=== PATIENT | male | born 1955 | race Caucasian/White ===

== ENCOUNTER → 2019-02-24 | Outpatient (CLI) | payer MEDICARE ==
[2019-02-24 07:10] LABS: Basophils # (A) 0.1 k/uL (0-0.2); Basophils % (A) 1 %; Eosinophils # (A) 0.1 k/uL (0-0.7); Eosinophils % (A) 2 %; HCT 44.9 % (39.0-53.0); HGB 14.6 gm/dL (13.0-17.5); Lymphocytes # (A) 2.6 k/uL (1.0-4.8); Lymphocytes % (A) 36 %; MCH 27.9 pg (25.0-35.0); MCHC 32.5 g/dL (31.0-37.0); MCV 85.8 fL (80.0-100.0); Mean Platelet Volume 7.6; Monocytes # (A) 0.4 k/uL (0-1.0); Monocytes % (A) 6 %; Neutrophils # (A) 3.8 k/uL (1.3-7.7); Neutrophils % (A) 53 %; Platelet Count 193 k/uL (150-450); RBC 5.23 m/uL (4.30-5.90); RDW 13.7 % (11.5-15.5); WBC 7.3 k/uL (3.8-10.6)
[2019-02-24 11:47] LABS: African American GFR (CKD) 74.7 (60.0-200.0); Albumin 4.4 g/dL (3.80-4.90); Albumin/Globulin Ratio 1.83 (1.60-3.17); Anion Gap 7.2 mmol/L (4.00-12.00); BUN/Creat Ratio 15.83 Ratio (12.00-20.00); Calcium 9.8 mg/dL (8.7-10.3); Carbon Dioxide 28.8 mmol/L (21.6-31.8); Globulin 2.4 g/dL (1.6-3.3); LDL Cholesterol,Calculated 63.2 mg/dL (0.0-131.0); Magnesium 1.6 mg/dL (1.5-2.4); Potassium 4.8 mmol/L (3.5-5.5); Total Bilirubin 0.5 mg/dL (0.3-1.2); Total Protein 6.8 g/dL (6.2-8.2); Uric Acid 7.4 mg/dL (3.7-8.7); VLDL Calculation 27.8 mg/dL (5.00-40.00)
[2019-02-24 11:56] LABS: T4, Free (Free Thyroxine) 0.9 ng/dL (0.80-1.80)
== END | disposition home or self-care (01) ==
LOC: LABWHC1 06:40
PROVIDERS: ATTEND Family Medicine
DX: E11.9 Type 2 diabetes mellitus without complications (principal); E78.5 Hyperlipidemia, unspecified; G25.81 Restless legs syndrome; I10 Essential (primary) hypertension
CPT/HCPCS: 36415; 80053; 80061; 82043; 82550; 82570; 82607; 83735; 84439; 84443; 84550; 85025

== ENCOUNTER → 2019-07-04 | Outpatient (CLI) | payer MEDICARE ==
[2019-07-04 07:18] LABS: Basophils # (A) 0.1 k/uL (0-0.2); Basophils % (A) 1 %; Eosinophils # (A) 0.2 k/uL (0-0.7); Eosinophils % (A) 2 %; HCT 46.4 % (39.0-53.0); HGB 15.5 gm/dL (13.0-17.5); Lymphocytes # (A) 2.4 k/uL (1.0-4.8); Lymphocytes % (A) 32 %; MCHC 33.5 g/dL (31.0-37.0); MCV 86.6 fL (80.0-100.0); Mean Platelet Volume 8.9; Monocytes # (A) 0.4 k/uL (0-1.0); Monocytes % (A) 6 %; Neutrophils # (A) 4.2 k/uL (1.3-7.7); Neutrophils % (A) 57 %; Platelet Count 202 k/uL (150-450); RBC 5.36 m/uL (4.30-5.90); RDW 13.2 % (11.5-15.5); WBC 7.4 k/uL (3.8-10.6)
[2019-07-04 13:08] LABS: African American GFR (CKD) 82.9 (60.0-200.0); Albumin 4.6 g/dL (3.80-4.90); Anion Gap 7.3 mmol/L (4.00-12.00); BUN/Creat Ratio 17.27 Ratio (12.00-20.00); Calcium 9.6 mg/dL (8.7-10.3); Carbon Dioxide 27.7 mmol/L (21.6-31.8); Chol/HDL Ratio 3.48; Globulin 2.3 g/dL (1.6-3.3); LDL Cholesterol,Calculated 63.2 mg/dL (0.0-131.0); Non-African American GFR(CKD) 71.6 (60.0-200.0); Potassium 4.4 mmol/L (3.5-5.5); Total Bilirubin 0.6 mg/dL (0.2-1.2); Total Protein 6.9 g/dL (6.2-8.2); VLDL Calculation 18.8 mg/dL (5.00-40.00)
== END | disposition home or self-care (01) ==
LOC: LABWHC1 06:50
PROVIDERS: ATTEND Family Medicine
DX: I10 Essential (primary) hypertension (principal); E11.9 Type 2 diabetes mellitus without complications; E78.5 Hyperlipidemia, unspecified
CPT/HCPCS: 36415; 80053; 80061; 82550; 82607; 83036; 84439; 84443; 85025

== ENCOUNTER → 2020-03-08 | Outpatient (CLI) | payer MEDICARE ==
[2020-03-08 07:45] LABS: Basophils # (A) 0.1 k/uL (0-0.2); Basophils % (A) 1 %; Eosinophils # (A) 0.2 k/uL (0-0.7); Eosinophils % (A) 2 %; HCT 44.7 % (39.0-53.0); HGB 14.5 gm/dL (13.0-17.5); Lymphocytes # (A) 2.4 k/uL (1.0-4.8); Lymphocytes % (A) 31 %; MCH 28.5 pg (25.0-35.0); MCHC 32.4 g/dL (31.0-37.0); MCV 87.9 fL (80.0-100.0); Mean Platelet Volume 8.2; Monocytes # (A) 0.4 k/uL (0-1.0); Monocytes % (A) 6 %; Neutrophils # (A) 4.6 k/uL (1.3-7.7); Neutrophils % (A) 58 %; Platelet Count 188 k/uL (150-450); RBC 5.08 m/uL (4.30-5.90); RDW 13.6 % (11.5-15.5); WBC 7.9 k/uL (3.8-10.6)
[2020-03-08 07:52] LABS: Appearance,Urine Clear (Clear); Bilirubin,Urine Negative (Negative); Blood,Urine Negative (Negative); Color,Urine Yellow; Glucose,Urine (UA) Negative (Negative); Ketones,Urine Negative (Negative); Leukocyte Esterase,Urine Negative (Negative); Nitrite,Urine Negative (Negative); PH, Urine 5.5 (5.0-8.0); Protein,Urine Negative (Negative); Specific Gravity,Urine 1.023 (1.001-1.035); Urobilinogen,Urine <2.0 mg/dL (<2.0)
[2020-03-08 12:09] LABS: % Iron Saturation 16.38 (15.00-50.00); African American GFR (CKD) 82.4 (60.0-200.0); Albumin 4.6 g/dL (3.80-4.90); Anion Gap 5.8 mmol/L (4.00-12.00); BUN/Creat Ratio 23.64 Ratio (12.00-20.00); Calcium 9.7 mg/dL (8.7-10.3); Carbon Dioxide 25.2 mmol/L (21.6-31.8); Chol/HDL Ratio 3.87; Globulin 2.3 g/dL (1.6-3.3); LDL Cholesterol,Calculated 59.2 mg/dL (0.0-131.0); Magnesium 1.9 mg/dL (1.5-2.4); Non-African American GFR(CKD) 71.1 (60.0-200.0); Potassium 4.8 mmol/L (3.5-5.5); Total Bilirubin 0.3 mg/dL (0.3-1.2); Total Protein 6.9 g/dL (6.2-8.2); VLDL Calculation 29.8 mg/dL (5.00-40.00)
[2020-03-08 12:26] LABS: Urine Creatinine 115.6 mg/dL
[2020-03-08 12:28] LABS: Hemoglobin A1C 6.7 % (4.0-6.0)
== END | disposition home or self-care (01) ==
LOC: LABWHC1 07:05
PROVIDERS: ATTEND Family Medicine
DX: E78.5 Hyperlipidemia, unspecified (principal); I12.9 Hypertensive chronic kidney disease with stage 1 through stage 4 chronic kidney disease, or unspecified chronic kidney disease; E11.22 Type 2 diabetes mellitus with diabetic chronic kidney disease; N18.2 Chronic kidney disease, stage 2 (mild); N40.0 Benign prostatic hyperplasia without lower urinary tract symptoms; G25.81 Restless legs syndrome; E11.65 Type 2 diabetes mellitus with hyperglycemia
CPT/HCPCS: 36415; 80053; 80061; 81003; 82043; 82570; 83036; 83540; 83550; 83735; 84443; 85025

== ENCOUNTER 2021-07-17 08:48 | Emergency (ER) | payer MEDICARE ==
[2021-07-17 08:54] VITALS: BP 170/83; PULSE 65; RESP 18; TEMP 97.5
[2021-07-17] MEDS ORDERED: TOBRAMYCIN 0.3% OPHTH DROPS 5 ML BTL LEFT EYE STA (09:00)
[2021-07-17] MEDS ORDERED: FLUORESCEIN STRIPS 1 MG STRIP LEFT EYE ONE (09:00)
[2021-07-17] MEDS ORDERED: PROPARACAINE 0.5% OPHTH DROPS 15 ML BTL LEFT EYE STA (09:00)
--- NOTE | 2021-07-17 09:25 | ED ---
Eye Problem HPI - General Chief complaint: Eye Problems Stated complaint: Foreign Object in Lt Eye Time Seen by Provider: 07/17/21 08:56 Source: patient, RN notes reviewed Mode of arrival: ambulatory Limitations: no limitations - History of Present Illness Initial comments: This a 65-year-old male presented from chief complaint of foreign body left eye. Patient states he was cutting some cold warm Gill[place] on Sunday. Patient states that he hasn't been anxiety unable to flush out. His tetanus is up-to-date within last one year. Patient has no visual changes states she's has some mild irritation mild redness. - Related Data Allergies Allergy/AdvReac Type Severity Reaction Status Date / Time No Known Allergies Allergy Verified 07/17/21 08:54 Review of Systems ROS Statement: Those systems with pertinent positive or pertinent negative responses have been documented in the HPI. ROS Other: All systems not noted in ROS Statement are negative. Past Medical History Past Medical History: Diabetes Mellitus, Hypertension History of Any Multi-Drug Resistant Organisms: None Reported Past Surgical History: Hernia Repair Past Psychological History: No Psychological Hx Reported Smoking Status: Never smoker Past Alcohol Use History: Rare Past Drug Use History: None Reported General Exam Limitations: no limitations General appearance: alert, in no apparent distress Head exam: Present: atraumatic, normocephalic, normal inspection Eye exam: Present: PERRL, EOMI, conjunctival injection (mild left). Absent: normal appearance (Foreign body in the 12 o'clock position), scleral icterus, periorbital swelling ENT exam: Present: normal exam, mucous membranes moist Neck exam: Present: normal inspection, full ROM. Absent: tenderness, meningismus, lymphadenopathy Respiratory exam: Present: normal lung sounds bilaterally. Absent: respiratory distress, wheezes, rales, rhonchi, stridor Cardiovascular Exam: Present: regular rate, normal rhythm, normal heart sounds. Absent: systolic murmur, diastolic murmur, rubs, gallop, clicks Course Vital Signs 07/17/21 08:52 Temperature 97.5 F L Pulse Rate 65 Respiratory 18 Rate Blood Pressure 170/83 O2 Sat by Pulse 100 Oximetry Procedures - Forgein Body Removal Eye Site: Left Anesthetic Used: Proparacaine Eye Exam Technique: Holt Lamp Foreign Body Suspected: Metal Forgein Body Removal Technique: Cotton Swab, [place] Remaining Debris: No Patient Tolerated: no complications Medical Decision Making - Medical Decision Making Foreign body was removed with no complication patient discharged on Tobrex eyedrops follow-up ophthalmology return parameters were discussed. Disposition Clinical Impression: Foreign body of left eye Disposition: HOME SELF-CARE Condition: Stable Instructions (If sedation given, give patient instructions): Eye Foreign Body (ED) Additional Instructions: Please return to the Emergency Department if symptoms worsen or any other concerns. Is patient prescribed a controlled substance at d/c from ED?: No Referrals: Breana Gagnon MD [Primary Care Provider] - 1-2 days John So MD [STAFF PHYSICIAN] - 1-2 days Time of Disposition: 09:25
== END 2021-07-17 09:30 | disposition home or self-care (01) ==
LOC: EC 08:48
DX: T15.92XA Foreign body on external eye, part unspecified, left eye, initial encounter (principal); E11.9 Type 2 diabetes mellitus without complications; I10 Essential (primary) hypertension; W22.8XXA Striking against or struck by other objects, initial encounter
CPT/HCPCS: 65205; 99283

== ENCOUNTER 2021-08-10 06:47 | Day surgery (SDC) | payer MEDICARE ==
[~2021-08-10 06:47] MED LIST: LACTATED RINGERS 1,000 ML IV SCH; LIDOCAINE 1% (10MG/ML) FOR IV START INTRADERMA PRN
[2021-08-10 07:33] LABS: Glucose,Whole Blood 95 mg/dL (75-99)
[2021-08-10 07:34] VITALS: RESP 16; TEMP 97
[2021-08-10] MEDS ORDERED: PROPOFOL 10 MG/ML 20 ML VIAL IV ONE (07:48)
[2021-08-10] MEDS ORDERED: LIDOCAINE 1% INJ 10MG/ML (20 ML MDV) ONE (07:48)
--- NOTE | 2021-08-10 08:04 | P.PCN ---
Date of Procedure: 08/10/21 Procedure(s) Performed: BRIEF HISTORY: Patient is a 65-year-old pleasant male scheduled for an elective colonoscopy as a part of screening for colon rectal neoplasia. PROCEDURE PERFORMED: Colonoscopy with snare polypectomy and Endo Clip placement. PREOPERATIVE DIAGNOSIS: Screening for colon cancer. IV sedation per Anesthesia. PROCEDURE: After informed consent was obtained, the patient, was brought into the endoscopy unit. IV sedation was administered by Anesthesia under continuous monitoring. Digital rectal examination was normal. Initially the Olympus CF-160 flexible video colonoscope was then inserted in the rectum, gradually advanced into the cecum without any difficulty. Careful examination was performed as the scope was gradually being withdrawn. Ileocecal valve and the appendiceal orifice were visualized and appeared normal. Prep was excellent. In the base of the cecum there was a 1.5 cm linear polyp identified that was removed by snare polypectomy followed by Endo Clip placement. Mucosa of the cecum, ascending colon, transverse colon, descending colon, appeared normal. In the sigmoid: There was a 1 cm polyp removed by snare polypectomy. Sigmoid diverticulosis seen. Rest of the sigmoid colon, and rectum appeared normal. Retroflexion was performed in the rectum and no lesions were seen. The patient tolerated the procedure well. IMPRESSION: 1.5 cm broad-based linear cecal polyp status post piecemeal snare polypectomy followed by Endo Clip placement 1 cm; sigmoid polyp status post polypectomy Scattered sigmoid diverticulosis RECOMMENDATIONS: Findings of this examination were discussed with the patient as well as his family. Was advised to follow with the biopsy results and have a repeat colonoscopy in 3 years.
[2021-08-10 08:20] VITALS: PULSE 50
[2021-08-10 08:29] VITALS: BP 106/69
== END 2021-08-10 09:01 | disposition home or self-care (01) ==
LOC: ORWHC2ENDO 06:47
PROVIDERS: ATTEND Internal Medicine Gastroenterology
DX: Z12.11 Encounter for screening for malignant neoplasm of colon (principal); D12.0 Benign neoplasm of cecum; D12.5 Benign neoplasm of sigmoid colon; Z79.84 Long term (current) use of oral hypoglycemic drugs; Z79.4 Long term (current) use of insulin; Z79.899 Other long term (current) drug therapy; I10 Essential (primary) hypertension; E78.5 Hyperlipidemia, unspecified; Z85.51 Personal history of malignant neoplasm of bladder; Z92.21 Personal history of antineoplastic chemotherapy; M19.90 Unspecified osteoarthritis, unspecified site; G25.81 Restless legs syndrome; K21.9 Gastro-esophageal reflux disease without esophagitis; Z86.010 Personal history of colon polyps
CPT/HCPCS: 88305; 45385; J2001; J2704

== ENCOUNTER 2021-08-10 21:22 | Observation (INO) | payer MEDICARE ==
[2021-08-10] MEDS ORDERED: SODIUM CHLORIDE 0.9% 1,000 ML IV STA (22:31)
[2021-08-10 22:49] LABS: Basophils # (A) 0.1 k/uL (0-0.2); Basophils % (A) 1 %; Eosinophils # (A) 0.2 k/uL (0-0.7); Eosinophils % (A) 2 %; HCT 45.9 % (39.0-53.0); HGB 15.4 gm/dL (13.0-17.5); Lymphocytes # (A) 3.9 k/uL (1.0-4.8); Lymphocytes % (A) 35 %; MCH 29.7 pg (25.0-35.0); MCHC 33.4 g/dL (31.0-37.0); Mean Platelet Volume 8.5; Monocytes # (A) 0.6 k/uL (0-1.0); Monocytes % (A) 5 %; Neutrophils # (A) 6.3 k/uL (1.3-7.7); Neutrophils % (A) 56 %; Platelet Count 215 k/uL (150-450); RBC 5.16 m/uL (4.30-5.90); WBC 11.2 k/uL (3.8-10.6)
[2021-08-10 22:57] LABS: ALT 24 U/L (4-49); AST 31 U/L (17-59); African American GFR (CKD) >90 (>60 ml/min/1.73 sqM); Albumin 4.4 g/dL (3.5-5.0); Alkaline Phosphatase 68 U/L (38-126); Anion Gap 11 mmol/L; Blood Urea Nitrogen 18 mg/dL (9-20); Calcium 10.1 mg/dL (8.4-10.2); Carbon Dioxide 21 mmol/L (22-30); Chloride 106 mmol/L (98-107); Glucose 120 mg/dL (74-99); Non-African American GFR(CKD) 83 (>60 ml/min/1.73 sqM); Potassium 4.5 mmol/L (3.5-5.1); Sodium 138 mmol/L (137-145); Total Bilirubin 0.4 mg/dL (0.2-1.3); Total Protein 7.3 g/dL (6.3-8.2)
--- NOTE | 2021-08-10 22:59 | ED ---
GI Bleed HPI - General Chief complaint: GI Bleed Stated complaint: GI Bleed Time Seen by Provider: 08/10/21 22:28 Source: patient, family, RN notes reviewed Mode of arrival: ambulatory Limitations: no limitations - History of Present Illness Initial comments: This is a pleasant 65-year-old male who presents to the ED are with rectal bleeding. Patient states that he had a screening colonoscopy yesterday by Dr. Leon. Patient states at home he had a small bowel movement with dark red blood. Patient called the coremaking supervisor and was instructed to come here for observation, serial CBCs, and evaluation the morning. Patient denies any palpitations. Patient denies any chest pain. No lightheadedness. No abdominal pain. No bleeding from the sites. No history of blood dyscrasias. No chest pain or shortness of breath. No headache. No change in vision or hearing. No symptoms of syncope. No orthostasis. No hematuria. No changes in urination. - Related Data Home Medications Medication Instructions Recorded Confirmed Ascorbic Acid [Vitamin C] 1,000 mg PO DAILY 08/05/21 08/10/21 Aspirin 81 mg PO DAILY 08/05/21 08/10/21 Benazepril HCl 40 mg PO DAILY 08/05/21 08/10/21 Bisoprolol-Hctz 10-6.25 mg [Ziac 1 tab PO DAILY 08/05/21 08/10/21 10-6.25 MG] Cholecalciferol [Vitamin D3 (25 50 mcg PO DAILY 08/05/21 08/10/21 Mcg = 1000 Iu)] Ferrous Sulfate [Iron (65 MG 1 tab PO DAILY 08/05/21 08/10/21 Elemental)] INSULIN LISPRO (humaLOG) [humaLOG] 10 - 15 unit SQ AC-BID 08/05/21 08/10/21 Insulin Glargine,Hum.rec.anlog 45 unit SQ HS 08/05/21 08/10/21 [Basaglar Lukeikpen U-100] Omeprazole 20 mg PO HS 08/05/21 08/10/21 Pravastatin Sodium [Pravachol] 80 mg PO HS 08/05/21 08/10/21 metFORMIN HCL [Glucophage] 1,000 mg PO BID 08/05/21 08/10/21 rOPINIRole HCL 0.5 mg PO HS 08/05/21 08/10/21 Allergies Allergy/AdvReac Type Severity Reaction Status Date / Time No Known Allergies Allergy Verified 08/10/21 23:02 Review of Systems ROS Statement: Those systems with pertinent positive or pertinent negative responses have been documented in the HPI. ROS Other: All systems not noted in ROS Statement are negative. Past Medical History Past Medical History: Diabetes Mellitus, Hypertension History of Any Multi-Drug Resistant Organisms: None Reported Past Surgical History: Hernia Repair Additional Past Surgical History / Comment(s): colonosopy Past Psychological History: No Psychological Hx Reported Smoking Status: Never smoker Past Alcohol Use History: Rare Past Drug Use History: None Reported General Exam Limitations: no limitations General appearance: alert, in no apparent distress Head exam: Present: atraumatic, normocephalic, normal inspection Eye exam: Present: normal appearance, PERRL, EOMI. Absent: scleral icterus, conjunctival injection, periorbital swelling ENT exam: Present: normal exam, mucous membranes moist Neck exam: Present: normal inspection. Absent: tenderness, meningismus, lymphadenopathy Respiratory exam: Present: normal lung sounds bilaterally. Absent: respiratory distress, wheezes, rales, rhonchi, stridor Cardiovascular Exam: Present: regular rate, normal rhythm, normal heart sounds. Absent: systolic murmur, diastolic murmur, rubs, gallop, clicks GI/Abdominal exam: Present: soft, normal bowel sounds. Absent: distended, tenderness, guarding, rebound, rigid Extremities exam: Present: normal inspection, full ROM, normal capillary refill. Absent: tenderness, pedal edema, joint swelling, calf tenderness Back exam: Present: normal inspection Neurological exam: Present: alert, oriented X3, CN II-XII intact Psychiatric exam: Present: normal affect, normal mood Skin exam: Present: warm, dry, intact, normal color. Absent: rash Course Vital Signs 08/10/21 21:38 Temperature 98.7 F Pulse Rate 63 Respiratory 22 Rate Blood Pressure 127/79 O2 Sat by Pulse 100 Oximetry Medical Decision Making - Medical Decision Making Patient is hemodynamically stable. No abdominal pain. I discussed the case with the coremaking supervisor, Dr. Leon who suggested observation. She states that she does not need any imaging as the patient is pain free and he midaxillary stable. Patient will be admitted for observation and serial CBCs. The case was discussed in detail with ED attending physician. Presentation, findings, treatment plan discussed in detail. She will be admitted to Dr. Gagnon with GI consultation. Serial CBCs - Lab Data Result diagrams: 08/10/21 22:31 08/10/21 22:31 Lab Results 08/10/21 08/10/21 08/10/21 Range/Units 22:30 22:31 22:31 WBC 11.2 H (3.8-10.6) k/uL RBC 5.16 (4.30-5.90) m/uL Hgb 15.4 (13.0-17.5) gm/dL Hct 45.9 (39.0-53.0) % MCV 89.0 (80.0-100.0) fL MCH 29.7 (25.0-35.0) pg MCHC 33.4 (31.0-37.0) g/dL RDW 13.0 (11.5-15.5) % Plt Count 215 (150-450) k/uL MPV 8.5 Neutrophils % 56 % Lymphocytes % 35 % Monocytes % 5 % Eosinophils % 2 % Basophils % 1 % Neutrophils # 6.3 (1.3-7.7) k/uL Lymphocytes # 3.9 (1.0-4.8) k/uL Monocytes # 0.6 (0-1.0) k/uL Eosinophils # 0.2 (0-0.7) k/uL Basophils # 0.1 (0-0.2) k/uL PT 10.1 (9.0-12.0) sec INR 0.9 (<1.2) APTT 24.5 (22.0-30.0) sec Sodium (137-145) mmol/L Potassium (3.5-5.1) mmol/L Chloride (98-107) mmol/L Carbon Dioxide (22-30) mmol/L Anion Gap mmol/L BUN (9-20) mg/dL Creatinine (0.66-1.25) mg/dL Est GFR (CKD-EPI)AfAm (>60 ml/min/1.73 sqM) Est GFR (CKD-EPI)NonAf (>60 ml/min/1.73 sqM) Glucose (74-99) mg/dL Calcium (8.4-10.2) mg/dL Total Bilirubin (0.2-1.3) mg/dL AST (17-59) U/L ALT (4-49) U/L Alkaline Phosphatase (38-126) U/L Total Protein (6.3-8.2) g/dL Albumin (3.5-5.0) g/dL Blood Type O Positive Blood Type Confirm Blood Type Recheck No Previous Record Bld Type Recheck Status CABO Indicated Antibody Screen NEGATIVE Spec Expiration Date 08/13/2021 - 232908/10/21 08/10/21 Range/Units 22:31 22:40 WBC (3.8-10.6) k/uL RBC (4.30-5.90) m/uL Hgb (13.0-17.5) gm/dL Hct (39.0-53.0) % MCV (80.0-100.0) fL MCH (25.0-35.0) pg MCHC (31.0-37.0) g/dL RDW (11.5-15.5) % Plt Count (150-450) k/uL MPV Neutrophils % % Lymphocytes % % Monocytes % % Eosinophils % % Basophils % % Neutrophils # (1.3-7.7) k/uL Lymphocytes # (1.0-4.8) k/uL Monocytes # (0-1.0) k/uL Eosinophils # (0-0.7) k/uL Basophils # (0-0.2) k/uL PT (9.0-12.0) sec INR (<1.2) APTT (22.0-30.0) sec Sodium 138 (137-145) mmol/L Potassium 4.5 (3.5-5.1) mmol/L Chloride 106 (98-107) mmol/L Carbon Dioxide 21 L (22-30) mmol/L Anion Gap 11 mmol/L BUN 18 (9-20) mg/dL Creatinine 0.97 (0.66-1.25) mg/dL Est GFR (CKD-EPI)AfAm >90 (>60 ml/min/1.73 sqM) Est GFR (CKD-EPI)NonAf 83 (>60 ml/min/1.73 sqM) Glucose 120 H (74-99) mg/dL Calcium 10.1 (8.4-10.2) mg/dL Total Bilirubin 0.4 (0.2-1.3) mg/dL AST 31 (17-59) U/L ALT 24 (4-49) U/L Alkaline Phosphatase 68 (38-126) U/L Total Protein 7.3 (6.3-8.2) g/dL Albumin 4.4 (3.5-5.0) g/dL Blood Type Blood Type Confirm O Positive Blood Type Recheck Bld Type Recheck Status Antibody Screen Spec Expiration Date Disposition Clinical Impression: Rectal bleeding, Postoperative complication Disposition: ADMITTED IP TO THIS HOSP Condition: Stable Referrals: Breana Gagnon MD [Primary Care Provider] - 1-2 days
[2021-08-10 23:14] LABS: INR 0.9 (<1.2); Partial Thromboplastin Time 24.5 sec (22.0-30.0); Prothrombin Time 10.1 sec (9.0-12.0)
[2021-08-11] MEDS: SODIUM CHLORIDE 0.9% 1,000 ML IV SCH (02:28)
[2021-08-11 05:52] LABS: Basophils # (A) 0.1 k/uL (0-0.2); Basophils % (A) 1 %; Eosinophils # (A) 0.1 k/uL (0-0.7); Eosinophils % (A) 1 %; HCT 40.2 % (39.0-53.0); HGB 13.5 gm/dL (13.0-17.5); Lymphocytes # (A) 3.2 k/uL (1.0-4.8); Lymphocytes % (A) 36 %; MCH 29.7 pg (25.0-35.0); MCHC 33.7 g/dL (31.0-37.0); MCV 88.2 fL (80.0-100.0); Mean Platelet Volume 8.5; Monocytes # (A) 0.5 k/uL (0-1.0); Monocytes % (A) 5 %; Neutrophils % (A) 55 %; Platelet Count 190 k/uL (150-450); RBC 4.56 m/uL (4.30-5.90); RDW 13.1 % (11.5-15.5)
[2021-08-11 08:17] LABS: Glucose,Whole Blood 120 mg/dL (75-99)
[2021-08-11] MEDS ORDERED: MAGNESIUM CITRATE 296 ML BOTTLE PO ONE (11:11)
[2021-08-11 11:17] LABS: Glucose,Whole Blood 131 mg/dL (75-99)
[2021-08-11] MEDS: INSULIN ASPART (NovoLOG) 100 UNIT/ML VIAL SQ SCH ×3 (11:32→20:39)
[2021-08-11 12:49] LABS: HGB 12.3 gm/dL (13.0-17.5); MCH 29.4 pg (25.0-35.0); MCHC 32.4 g/dL (31.0-37.0); Mean Platelet Volume 8.4; Platelet Count 194 k/uL (150-450); RBC 4.17 m/uL (4.30-5.90); RDW 13.7 % (11.5-15.5)
--- NOTE | 2021-08-11 13:18 | P.CONS ---
History of Present Illness - Reason for Consult Consult date: 08/11/21 Rectal Bleeding Requesting physician: Manav Gómez - Chief Complaint Rectal bleeding - History of Present Illness This is 65-year-old male who presented yesterday for outpatient elective screening colonoscopy for colon rectal neoplasia. Findings included cecal polyp status post snare polypectomy followed by Endo Clip placement as well as a sigmoid polyp status post polypectomy scattered sigmoid diverticulosis. She reports after the procedure yesterday evening he had a small bowel movement with dark red blood. He had called the GI office and was told to continue to observe. Later in the evening he continued to have bowel movements with bright red blood per rectum. He states he has no abdominal pain and cramping, nausea, or vomiting. On admission his hemoglobin was 15.4 with a repeat of 13.5. His last bloody bowel movement was at 3 AM with feelings of pressure to go again. Denies any anticoagulation use. Review of Systems REVIEW OF SYSTEMS: CARDIOPULMONARY: No chest pain or shortness of breath. Gastrointestinal: No abdominal pain, cramping, or bloating.. No nausea or vomiting. No hematemesis, coffee-ground emesis. Bowel movements with rectal bleeding. Bright red. GENITOURINARY: No dysuria or hematuria. MUSCULOSKELETAL: Reports normal range of motion., Joint pain. SKIN: No rashes. No jaundice. ENDOCRINE: No chills, fevers. No excessive weight gain or loss. No polydipsia or polyuria. PSYCHIATRIC: Unremarkable. NEUROLOGY: No change in mental status. Denies dizziness, headache. ENT: Vision unremarkable. CONSTITUTIONAL: No recent weight loss. No fever, chills, night sweats. Past Medical History Past Medical History: Diabetes Mellitus, Hypertension History of Any Multi-Drug Resistant Organisms: None Reported Past Surgical History: Hernia Repair Additional Past Surgical History / Comment(s): colonosopy Past Psychological History: No Psychological Hx Reported Smoking Status: Never smoker Past Alcohol Use History: Rare Past Drug Use History: None Reported Medications and Allergies Home Medications Medication Instructions Recorded Confirmed Type Ascorbic Acid [Vitamin C] 1,000 mg PO DAILY 08/05/21 08/10/21 History Aspirin 81 mg PO DAILY 08/05/21 08/10/21 History Benazepril HCl 40 mg PO DAILY 08/05/21 08/10/21 History Bisoprolol-Hctz 10-6.25 mg [Ziac 1 tab PO DAILY 08/05/21 08/10/21 History 10-6.25 MG] Cholecalciferol [Vitamin D3 (25 50 mcg PO DAILY 08/05/21 08/10/21 History Mcg = 1000 Iu)] Ferrous Sulfate [Iron (65 MG 1 tab PO DAILY 08/05/21 08/10/21 History Elemental)] INSULIN LISPRO (humaLOG) [humaLOG] 10 - 15 unit SQ AC-BID 08/05/21 08/10/21 History Insulin Glargine,Hum.rec.anlog 45 unit SQ HS 08/05/21 08/10/21 History [Basaglar Kwikpen U-100] Omeprazole 20 mg PO HS 08/05/21 08/10/21 History Pravastatin Sodium [Pravachol] 80 mg PO HS 08/05/21 08/10/21 History metFORMIN HCL [Glucophage] 1,000 mg PO BID 08/05/21 08/10/21 History rOPINIRole HCL 0.5 mg PO HS 08/05/21 08/10/21 History Allergies Allergy/AdvReac Type Severity Reaction Status Date / Time No Known Allergies Allergy Verified 08/10/21 23:02 Physical Exam Vitals: Vital Signs Temp Pulse Resp BP Pulse Ox 08/11/21 06:30 98.1 F 52 L 16 101/55 98 08/11/21 01:10 105/62 97 08/11/21 00:10 123/73 98 08/10/21 22:50 113/73 98 08/10/21 22:48 100 08/10/21 21:38 98.7 F 63 22 127/79 100 Intake and Output 08/10/21 08/11/21 08/11/21 22:59 06:59 14:59 Other: Weight 95.254 kg General appearance: The patient is alert, oriented, appears in no acute distress. HET: Head is normocephalic and atraumatic. Conjunctiva pink. Sclera anicteric. Neck: Supple without lymphadenopathy. Trachea midline. Heart: S1 S2. Regular rate and rhythm. Lungs: Clear to auscultation. Abdomen: Soft, nontender, nondistended with bowel sounds. No guarding or r igidity. Skin: No rashes. No jaundice. Extremities: Normal skin color and turgor. No pedal edema. Neurological: No focal deficits. Alert and oriented x3. Results CBC & Chem 7: 08/11/21 12:31 08/10/21 22:31 Labs: Abnormal Lab Results - Last 24 Hours (Table) 08/10/21 08/10/21 Range/Units 22:31 22:31 WBC 11.2 H (3.8-10.6) k/uL Carbon Dioxide 21 L (22-30) mmol/L Glucose 120 H (74-99) mg/dL Assessment and Plan (1) Rectal bleeding Narrative/Plan: A 65-year-old male who underwent an elective screening colonoscopyYesterday by Dr. Leon with findings of cecal polyp status post snare polypectomy with Endo Clip placement as well as a sigmoid polyp status post polypectomy, along with scattered sigmoid diverticulosis. The patient later that day had a small bowel movement with some dark red blood noted. He had reached Dr. Leon's office and was told to continue to observe. Later in the evening he continued to have bowel movement with bright red blood for which she states was quite substantial. He was told to come to the emergency room for further evaluation. On admission he had a hemoglobin of 15.4 which has subsequently dropped to 12.3. He has had continued rectal bleeding. Will plan on repeat colonoscopy this afternoon. Current Visit: Yes Status: Acute Code(s): K62.5 - HEMORRHAGE OF ANUS AND RECTUM SNOMED Code(s): 10917641 (2) Colon polyps Current Visit: Yes Status: Acute Code(s): K63.5 - POLYP OF COLON SNOMED Code(s): 39650935 Plan: 1. Nothing by mouth 2. Give 1 bottle magnesium citrate 3. Stat CBC 4. Patient scheduled for Colonoscopy this afternoon Thank you for this consultation, we will continue to follow. Dr. Orestes Leon I agree with the dictator's note, documented as a scribe by Lois Harris.
[2021-08-11 16:59] LABS: Glucose,Whole Blood 120 mg/dL (75-99)
--- NOTE | 2021-08-11 17:19 | P.HPIM ---
History of Present Illness H&P Date: 08/11/21 Chief Complaint: rectal bleed This is a pleasant 65 yo gentleman patient of dr Gagnon, known history of ckd2 dm2 hypertension admitted from the ER after recommendations from dr Leon gastroenterology after performing routine colonoscopy for fh of colon ca surveilance, he did well till the afternoon when he noticed red blood per rectum, with bowel movements that are bloody approximately 7 times in 24 hours. he had did not have any rectal bleed prior to colonsopy, it was thought that the clip used to biopsy a long colon polyp was dislodged, he was recommended to be admitted for close monitoring. he gets colonoscopy every 5 years for colon ca screening with mother having colon ca in the ER hemoglobin was 15.4. consult with dr leon, serial monitoring for anemia blood loses and vitals. will need direct visualization to control bleeding if needed Review of Systems Constitutional: Reports as per HPI Ears, nose, mouth and throat: Reports as per HPI Cardiovascular: Reports as per HPI Respiratory: Reports as per HPI Gastrointestinal: Reports as per HPI, Reports BRBPR Genitourinary: Reports as per HPI Musculoskeletal: Reports as per HPI Integumentary: Reports as per HPI Neurological: Reports as per HPI, Denies aphasia, Denies ataxia, Denies balance difficulties, Denies burning pain, Denies change in mentation, Denies change in smell/taste, Denies change in speech, Denies confusion, Denies convulsions, Denies double vision, Denies gait dysfunction, Denies head injury, Denies headaches, Denies hearing difficulties, Denies lack of coordination, Denies loss of vision, Denies memory loss, Denies migraines, Denies motor disturbance, Denies numbness, Denies paralysis, Denies paresthesias, Denies seizures, Denies sensory deficit, Denies spasticity, Denies syncope, Denies tic, Denies tingling, Denies transient paralysis, Denies tremors, Denies vertigo, Denies weakness, Denies visual changes Psychiatric: Reports as per HPI Endocrine: Reports as per HPI Hematologic/Lymphatic: Reports as per HPI Allergic/Immunologic: Reports as per HPI Past Medical History Past Medical History: Diabetes Mellitus, Hypertension History of Any Multi-Drug Resistant Organisms: None Reported Past Surgical History: Hernia Repair Additional Past Surgical History / Comment(s): colonosopy Past Psychological History: No Psychological Hx Reported Smoking Status: Never smoker Past Alcohol Use History: Rare Past Drug Use History: None Reported - Past Family History Mother Family Medical History: Cancer Additional Family Medical History / Comment(s): Bladder cancer. Mother is . Father Family Medical History: Dementia, Hypertension Additional Family Medical History / Comment(s): Father is . Medications and Allergies Home Medications Medication Instructions Recorded Confirmed Type Ascorbic Acid [Vitamin C] 1,000 mg PO DAILY 08/05/21 08/10/21 History Aspirin 81 mg PO DAILY 08/05/21 08/10/21 History Benazepril HCl 40 mg PO DAILY 08/05/21 08/10/21 History Bisoprolol-Hctz 10-6.25 mg [Ziac 1 tab PO DAILY 08/05/21 08/10/21 History 10-6.25 MG] Cholecalciferol [Vitamin D3 (25 50 mcg PO DAILY 08/05/21 08/10/21 History Mcg = 1000 Iu)] Ferrous Sulfate [Iron (65 MG 1 tab PO DAILY 08/05/21 08/10/21 History Elemental)] INSULIN LISPRO (humaLOG) [humaLOG] 10 - 15 unit SQ AC-BID 08/05/21 08/10/21 His tory Insulin Glargine,Hum.rec.anlog 45 unit SQ HS 08/05/21 08/10/21 History [Basaglar Kwikpen U-100] Omeprazole 20 mg PO HS 08/05/21 08/10/21 History Pravastatin Sodium [Pravachol] 80 mg PO HS 08/05/21 08/10/21 History metFORMIN HCL [Glucophage] 1,000 mg PO BID 08/05/21 08/10/21 History rOPINIRole HCL 0.5 mg PO HS 08/05/21 08/10/21 History Allergies Allergy/AdvReac Type Severity Reaction Status Date / Time No Known Allergies Allergy Verified 08/10/21 23:02 Physical Exam Vitals: Vital Signs Temp Pulse Pulse Resp BP BP Pulse Ox 08/11/21 12:06 97.9 F 57 L 17 114/72 98 08/11/21 08:34 96.3 F L 62 16 116/75 97 08/11/21 06:30 98.1 F 52 L 16 101/55 98 08/11/21 01:10 105/62 97 08/11/21 00:10 123/73 98 08/10/21 22:50 113/73 98 08/10/21 22:48 100 08/10/21 21:38 98.7 F 63 22 127/79 100 Intake and Output 08/10/21 08/11/21 08/11/21 22:59 06:59 14:59 Other: Weight 95.254 kg - Constitutional General appearance: cooperative, no acute distress - EENT Eyes: EOMI, PERRLA, dentition normal - Neck Neck: normal ROM - Respiratory Respiratory: bilateral: CTA, negative: diminished - Cardiovascular Rhythm: regular Heart sounds: normal: S1, S2 Abnormal Heart Sounds: no systolic murmur, no diastolic murmur, no rub, no S3 Gallop, no S4 Gallop, no click, no other - Gastrointestinal General gastrointestinal: normal bowel sounds, soft - Integumentary Integumentary: normal - Neurologic Neurologic: CNII-XII intact - Musculoskeletal Musculoskeletal: gait normal, strength equal bilaterally - Psychiatric Psychiatric: A&O x's 3, appropriate affect, intact judgment & insight Results CBC & Chem 7: 08/11/21 19:02 08/10/21 22:31 Labs: Abnormal Lab Results - Last 24 Hours (Table) 08/10/21 08/10/21 08/11/21 Range/Units 22:31 22:31 08:16 WBC 11.2 H (3.8-10.6) k/uL Carbon Dioxide 21 L (22-30) mmol/L Glucose 120 H (74-99) mg/dL POC Glucose (mg/dL) 120 H (75-99) mg/dL 08/11/21 Range/Units 11:15 WBC (3.8-10.6) k/uL Carbon Dioxide (22-30) mmol/L Glucose (74-99) mg/dL POC Glucose (mg/dL) 131 H (75-99) mg/dL Laboratory Results WBC 7.0 k/uL (3.8-10.6) 08/11/21 12:31 RBC 4.17 m/uL (4.30-5.90) L 08/11/21 12:31 Hgb 12.3 gm/dL (13.0-17.5) L 08/11/21 12:31 Hct 38.0 % (39.0-53.0) L 08/11/21 12: MCV 91.0 fL (80.0-100.0) 08/11/21 12: MCH 29.4 pg (25.0-35.0) 08/11/21 12: MCHC 32.4 g/dL (31.0-37.0) 08/11/21 12: RDW 13.7 % (11.5-15.5) 08/11/21 12:31 Plt Count 194 k/uL (150-450) 08/11/21 12:31 MPV 8.4 08/11/21 12:31 Neutrophils % 55 % 08/11/21 05:44 Lymphocytes % 36 % 08/11/21 05:44 Monocytes % 5 % 08/11/21 05:44 Eosinophils % 1 % 08/11/21 05:44 Basophils % 1 % 08/11/21 05:44 Neutrophils # 5.0 k/uL (1.3-7.7) 08/11/21 05:44 Lymphocytes # 3.2 k/uL (1.0-4.8) 08/11/21 05:44 Monocytes # 0.5 k/uL (0-1.0) 08/11/21 05:44 Eosinophils # 0.1 k/uL (0-0.7) 08/11/21 05:44 Basophils # 0.1 k/uL (0-0.2) 08/11/21 05:44 PT 10.1 sec (9.0-12.0) 08/10/21 22:31 INR 0.9 (<1.2) 08/10/21 22:31 APTT 24.5 sec (22.0-30.0) 08/10/21 22:31 Sodium 138 mmol/L (137-145) 08/10/21 22:31 Potassium 4.5 mmol/L (3.5-5.1) 08/10/21 22:31 Chloride 106 mmol/L (98-107) 08/10/21 22:31 Carbon Dioxide 21 mmol/L (22-30) L 08/10/21 22:31 Anion Gap 11 mmol/L 08/10/21 22:31 BUN 18 mg/dL (9-20) 08/10/21 22:31 Creatinine 0.97 mg/dL (0.66-1.25) 08/10/21 22:31 Est GFR (CKD-EPI)AfAm >90 (>60 ml/min/1.73 sqM) 08/10/21 22:31 Est GFR (CKD-EPI)NonAf 83 (>60 ml/min/1.73 sqM) 08/10/21 22:31 Glucose 120 mg/dL (74-99) H 08/10/21 22:31 POC Glucose (mg/dL) 120 mg/dL (75-99) H 08/11/21 16:58 POC Glu Therapeutic Mentor Junie Gonzalez 08/11/21 16:58 Calcium 10.1 mg/dL (8.4-10.2) 08/10/21 22:31 Total Bilirubin 0.4 mg/dL (0.2-1.3) 08/10/21 22:31 AST 31 U/L (17-59) 08/10/21 22:31 ALT 24 U/L (4-49) 08/10/21 22:31 Alkaline Phosphatase 68 U/L (38-126) 08/10/21 22:31 Total Protein 7.3 g/dL (6.3-8.2) 08/10/21 22:31 Albumin 4.4 g/dL (3.5-5.0) 08/10/21 22:31 Coronavirus (PCR) Not Detected (Not Detectd) 08/11/21 00:58 Blood Type O Positive 08/10/21 22:30 Blood Type Confirm O Positive 08/10/21 22:40 Blood Type Recheck No Previous Record 08/10/21 22:30 Bld Type Recheck Status CABO Indicated 08/10/21 22:30 Antibody Screen NEGATIVE 08/10/21 22:30 Spec Expiration Date 08/13/2021 - 232908/10/21 22:30 Assessment and Plan Plan: 1 acute rectal bleed after routine colonoscopy, monitor for blood loses, consult kim Rivas for pneumoperitoneum,. npo till seen by Gi, otherwise can start full liquid diet without reds. aspirin on hold 2. dibetes mellitus type 2. 3 hypertension on bisoprolol hctZ 10/6.25 daily 4 ckd 2 continue metformin, hold with parameters for gfr over 1.5 5 fh of colon ca 6 hyperlipidemia on pravastatin 80 7 bladder cancer history 8 restless leg syndrome on ropinirole 0.25 daily 9 gi prophylaxis on PPE 10 dvt prophylaxis on early ambulation and scd
[2021-08-11] MEDS ORDERED: IV FLUID CONTINUATION 1,000 ML IV ONE (17:25)
[2021-08-11] MEDS ORDERED: PHENYLEPHRINE-0.9% NACL SYG 1,000 MCG/10 ML SYRINGE ONE (17:31)
[2021-08-11] MEDS ORDERED: PROPOFOL 10 MG/ML 20 ML VIAL IV ONE (17:31)
[2021-08-11] MEDS ORDERED: LIDOCAINE 1% INJ 10MG/ML (20 ML MDV) ONE (17:31)
[2021-08-11] MEDS ORDERED: EPINEPHrine 10 ML SYRINGE (0.1 MG/ML) MISCELLANE ONE (17:48)
--- NOTE | 2021-08-11 18:06 | P.PCN ---
Date of Procedure: 08/11/21 Procedure(s) Performed: BRIEF HISTORY: Patient is a 65-year-old pleasant white male who underwent a screening colonoscopy yesterday morning and was noted to have a 1.5 cm linear cecal polyp that was removed by snare polypectomy followed by Endo Clip placement. Another sigmoid polyp that was also removed by snare polypectomy. He started having acute lower GI bleed last night around 8 PM. Careful emergency room and subsequently admitted to the hospital. Initial hemoglobin was 15 and this afternoon he dropped to 12 g/dL. He continues to have multiple episodes of bright red blood per rectum and hence he scheduled for a repeat colonoscopy today. PROCEDURE PERFORMED: Colonoscopy with injection epinephrine and Endo Clip placement. PREOPERATIVE DIAGNOSIS: Acute post polypectomy lower GI bleed. IV sedation per Anesthesia. PROCEDURE: After informed consent was obtained, the patient, was brought into the endoscopy unit. IV sedation was administered by Anesthesia under continuous monitoring. Digital rectal examination was normal. Initially the Olympus CF-160 flexible video colonoscope was then inserted in the rectum, gradually advanced into the cecum without any difficulty. Careful examination was performed as the scope was gradually being withdrawn. Ileocecal valve and the appendiceal orifice were visualized and appeared normal. Prep was excellent. The previous polypectomy site in the base of the cecum was identified with the previously placed Endo Clip was visualized. Adjacent to this area there was a clot with active oozing identified. Initially I placed another clip but there was continued oozing. At this time I injected 1 in 10,000 epinephrine, total of 10 mL was injected. Following this time hemostasis was achieved but still there was some oozing identified at the polypectomy site. At this time 2 more clips were placed adjacent to each other and subsequently good hemostasis was achieved. Watched the area for another 3-4 minutes and no further bleeding was identified. At this time the scope was gradually being withdrawn. Mucosa of the ascending colon, transverse colon, descending colon, sigmoid colon, and rectum appeared normal. At her sigmoid diverticulosis seen. Retroflexion was performed in the rectum and no lesions were seen. The patient tolerated the procedure well. IMPRESSION: Active oozing in the base of the cecum at the site of previous polypectomy status post injection epinephrine and 3 Endo Clip placement as described above and good hemostasis achieved RECOMMENDATIONS: Findings of this examination were discussed with the patient as well as his family. At this time will start him on a clear liquid diet and monitor CBC every 6 hours and watch him closely..
[2021-08-11 19:15] LABS: HCT 35.9 % (39.0-53.0); HGB 11.9 gm/dL (13.0-17.5); MCH 29.9 pg (25.0-35.0); MCHC 33.2 g/dL (31.0-37.0); MCV 90.1 fL (80.0-100.0); Mean Platelet Volume 8.6; Platelet Count 175 k/uL (150-450); RBC 3.98 m/uL (4.30-5.90); RDW 13.2 % (11.5-15.5); WBC 7.2 k/uL (3.8-10.6)
[2021-08-11 19:55] LABS: Glucose,Whole Blood 120 mg/dL (75-99)
[2021-08-11] MEDS ORDERED: INSULIN DETEMIR (LEVEMIR) 100 UNIT/ML SYR SQ SCH (21:00)
[2021-08-11] MEDS ORDERED: PRAVASTATIN SODIUM 80 MG TAB PO SCH (21:00)
[2021-08-12 03:24] VITALS: PULSE 75
[2021-08-12] MEDS: SODIUM CHLORIDE 0.9% 1,000 ML IV SCH (03:34)
[2021-08-12 04:30] LABS: HCT 34.2 % (39.0-53.0); HGB 11.6 gm/dL (13.0-17.5); MCH 30.5 pg (25.0-35.0); MCV 89.8 fL (80.0-100.0); Mean Platelet Volume 8.6; Platelet Count 171 k/uL (150-450); RBC 3.81 m/uL (4.30-5.90); RDW 13.1 % (11.5-15.5); WBC 7.5 k/uL (3.8-10.6)
[2021-08-12 07:20] VITALS: BP 117/71; RESP 18; TEMP 98.4
[2021-08-12] MEDS: INSULIN ASPART (NovoLOG) 100 UNIT/ML VIAL SQ SCH (07:34)
[2021-08-12 07:36] LABS: Glucose,Whole Blood 133 mg/dL (75-99)
--- NOTE | 2021-08-12 08:08 | XR ---
EXAMINATION TYPE: XR abdomen 2V DATE OF EXAM: 08/12/2021 CLINICAL DATA: 65 year-old male evaluate pneumoperitoneum, colonoscopy with some clips placed, [facility] COMPARISON: None FINDINGS: Lung bases are clear. No evidence for free intraperitoneal air. No dilated small bowel or air-fluid levels. Moderately gassy colon throughout. Some metallic clips are identified in the right lower quadrant pro jecting over the iliac crest. Some vascular calcifications the pelvis. No suspicious calcifications are seen. At least mild degenerative change of both hips. IMPRESSION: 1. Gassy colon in keeping with recent colonoscopy. Metallic clips are noted in the right lower quadra nt. 2. No evidence for free air or bowel obstruction.
[2021-08-12 08:50] LABS: HCT 35.5 % (39.0-53.0); HGB 11.8 gm/dL (13.0-17.5); MCHC 33.3 g/dL (31.0-37.0); MCV 90.3 fL (80.0-100.0); Mean Platelet Volume 8.5; Platelet Count 187 k/uL (150-450); RBC 3.93 m/uL (4.30-5.90); RDW 13.1 % (11.5-15.5)
[2021-08-12] MEDS ORDERED: FERROUS SULFATE 325 MG TAB PO SCH (09:00)
[2021-08-12] MEDS ORDERED: BISOPROLOL-HCTZ 10-6.25 MG 1 EACH TAB PO SCH (09:00)
--- NOTE | 2021-08-12 09:18 | P.DS ---
Providers Date of admission: 08/10/21 23:47 Expected date of discharge: 08/12/21 Attending physician: Breana Gagnon Consults: 08/10/21 23:53 Consult Physician Routine Consulting Provider: Patience Cardona Consult Reason/Comments: Rectal bleeding Do you want consulting provider notified?: Yes Primary care physician: Breana Gagnon [facility] Course: This is a pleasant 65 yo gentleman patient of dr Gagnon, known history of ckd2 dm2 hypertension admitted from the ER after recommendations from dr Cardona gastroenterology after performing routine colonoscopy for fh of colon ca surveilance, he did well till the afternoon when he noticed red blood per rectum, with bowel movements that are bloody approximately 7 times in 24 hours. he had did not have any rectal bleed prior to colonsopy, it was thought that the clip used to biopsy a long colon polyp was dislodged, he was recommended to be admitted for close monitoring. he gets colonoscopy every 5 years for colon ca screening with mother having colon ca in the ER hemoglobin was 15.4. consult with dr cardona, serial monitoring for anemia blood loses and vitals. will need direct visualization to control bleeding if needed 08/12: Patient states that he had a bowel movement 10 minutes ago which was loose but no blood no tightness. He was nothing by mouth yesterday but started clear liquids this morning and tolerated. Diet advanced to full liquids. Repeat hemoglobin 11.8. Blood sugar 133. Yesterday, patient underwent colonoscopy with injection of epinephrine and Endo Clip placement for active oozing in the base of the cecum at the site of previous polypectomy. Patient has been seen by GI this morning and cleared for discharge. Patient will be discharged in stable condition. DISCHARGE DIAGNOSES 1 acute rectal bleed after routine colonoscopy 2. diabetes mellitus type 2. 3 hypertension 4 ckd 2 5 fh of colon ca 6 hyperlipidemia 7 bladder cancer history 8 restless leg syndrome DISCHARGE PLAN Home Greater than 35 minutes was utilized and coordinating patient's discharge. Impression and plan of care have been directed as dictated by the signing physician. Arely Sylvester nurse practitioner acting as scribe for signing physician. Patient Condition at Discharge: Stable Plan - Discharge Summary Discharge Rx Participant: No New Discharge Prescriptions: Continue Insulin Glargine,Hum.rec.anlog [Basaglar Kwikpen U-100] 45 unit SQ HS Ferrous Sulfate [Iron (65 MG Elemental)] 1 tab PO DAILY Benazepril HCl 40 mg PO DAILY metFORMIN HCL [Glucophage] 1,000 mg PO BID Aspirin 81 mg PO DAILY #0 Ascorbic Acid [Vitamin C] 1,000 mg PO DAILY Cholecalciferol [Vitamin D3 (25 Mcg = 1000 Iu)] 50 mcg PO DAILY Pravastatin Sodium [Pravachol] 80 mg PO HS Omeprazole 20 mg PO HS rOPINIRole HCL 0.5 mg PO HS Bisoprolol-Hctz 10-6.25 mg [Ziac 10-6.25 MG] 1 tab PO DAILY INSULIN LISPRO (humaLOG) [humaLOG] 10 - 15 unit SQ AC-BID Discharge Medication List Ascorbic Acid [Vitamin C] 1,000 mg PO DAILY 08/05/21 [History] Benazepril HCl 40 mg PO DAILY 08/05/21 [History] Bisoprolol-Hctz 10-6.25 mg [Ziac 10-6.25 MG] 1 tab PO DAILY 08/05/21 [History] Cholecalciferol [Vitamin D3 (25 Mcg = 1000 Iu)] 50 mcg PO DAILY 08/05/21 [History] Ferrous Sulfate [Iron (65 MG Elemental)] 1 tab PO DAILY 08/05/21 [History] INSULIN LISPRO (humaLOG) [humaLOG] 10 - 15 unit SQ AC-BID 08/05/21 [History] Insulin Glargine,Hum.rec.anlog [Basaglar Kwikpen U-100] 45 unit SQ HS 08/05/21 [History] Omeprazole 20 mg PO HS 08/05/21 [History] Pravastatin Sodium [Pravachol] 80 mg PO HS 08/05/21 [History] metFORMIN HCL [Glucophage] 1,000 mg PO BID 08/05/21 [History] rOPINIRole HCL 0.5 mg PO HS 08/05/21 [History] Aspirin 81 mg PO DAILY #0 08/12/21 [Rx] Follow up Appointment(s)/Referral(s): Breana Gagnon MD [Primary Care Provider] - 08/16/21 9:45 am Patience Cardona MD [STAFF PHYSICIAN] - 08/17/21 4:30 pm Ambulatory/Diagnostic Orders: Complete Blood Count w/diff [LAB.AMB] Location: None Selected Patient Instructions/Handouts: Gastrointestinal Bleeding (DC), Low Fiber Diet (DC), Colorectal Polyps (DC) Activity/Diet/Wound Care/Special Instructions: lOW FIBER DIET Discharge Disposition: HOME SELF-CARE
--- NOTE | 2021-08-12 14:02 | P.PN ---
Subjective Progress Note Date: 08/12/21 Principal diagnosis: Rectal bleeding 65-year-old male who presented 2 days ago for an elective screening colonoscopy status post polypectomy with Endo Clip placement. The patient had returned later that evening with complaints of rectal bleeding. Yesterday he underwent a repeat colonoscopy with findings of active oozing from the base of the cecum in the area of the previous polypectomy. Epinephrine was injected as well as 3 endoclips placed. He was seen and examined without any complaints of abdominal pain, nausea, or vomiting. He's had no bowel movement this morning and no further rectal bleeding. Hemoglobin was stable at 11.8. He's been tolerating a clear liquid diet. Objective - Vital Signs Vital signs: Vital Signs Temp 98.4 F 08/12/21 07:19 Pulse 75 08/12/21 07:19 Resp 18 08/12/21 07:19 BP 117/71 08/12/21 07:19 Pulse Ox 99 08/12/21 07:19 Intake & Output 08/11/21 08/12/21 08/12/21 18:59 06:59 18:59 Intake Total 200 160 Balance 200 160 Weight 95.254 kg Intake: IV 200 Intake, IV Titration 160 Amount Sodium Chloride 0.9% 1, 160 000 ml @ 20 mls/hr IV . Q24H REPLACED BY [facility] Rx#:[id number] Other: Voiding Method Bedside Commode Bedside Commode # Voids 4 0 # Bowel Movements 3 - Exam General appearance: The patient is alert, oriented, appears in no acute distr ess. HET: Head is normocephalic and atraumatic. Conjunctiva pink. Sclera anicteric. Neck: Supple without lymphadenopathy. Abdomen: Soft, nontender, nondistended with bowel sounds. No guarding or rigidity. Extremities: Normal skin color and turgor. No pedal edema Skin: No rashes, no jaundice Neurological: No focal deficits. Alert and oriented x3. - Labs CBC & Chem 7: 08/12/21 07:42 08/10/21 22:31 Labs: Abnormal Lab Results - Last 24 Hours (Table) 08/11/21 08/11/21 08/11/21 Range/Units 11:15 12:31 16:58 RBC 4.17 L (4.30-5.90) m/uL Hgb 12.3 L (13.0-17.5) gm/dL Hct 38.0 L (39.0-53.0) % POC Glucose (mg/dL) 131 H 120 H (75-99) mg/dL 08/11/21 08/11/21 08/12/21 Range/Units 19:02 19:54 03:51 RBC 3.98 L 3.81 L (4.30-5.90) m/uL Hgb 11.9 L 11.6 L (13.0-17.5) gm/dL Hct 35.9 L 34.2 L (39.0-53.0) % POC Glucose (mg/dL) 120 H (75-99) mg/dL 08/12/21 Range/Units 07:33 RBC (4.30-5.90) m/uL Hgb (13.0-17.5) gm/dL Hct (39.0-53.0) % POC Glucose (mg/dL) 133 H (75-99) mg/dL Assessment and Plan (1) Rectal bleeding Narrative/Plan: A 65-year-old male who underwent an elective screening colonoscopy yesterday by Dr. Leon with findings of cecal polyp status post snare polypectomy with Endo Clip placement as well as a sigmoid polyp status post polypectomy, along with scattered sigmoid diverticulosis. The patient later that day had a small bowel movement with some dark red blood noted. He had reached Dr. Leon's office and was told to continue to observe. Later in the evening he continued to have bowel movement with bright red blood for which she states was quite substantial. He was told to come to the emergency room for further evaluation. On admission he had a hemoglobin of 15.4 which has subsequently dropped to 12.3. He has had continued rectal bleeding. Repeat colonoscopy completed yesterday afternoon with findings of active oozing from the base of the cecum where previous polypectomy was performed. Epinephrine and endoclipped 3 were placed. Status: Acute Code(s): K62.5 - HEMORRHAGE OF ANUS AND RECTUM SNOMED Code(s): 80143109 (2) Colon polyps Status: Acute Code(s): K63.5 - POLYP OF COLON SNOMED Code(s): 07837211 Plan: 1. Advanced to low fiber diet 2. Hemoglobin stable patient may be cleared for discharge from gastroenterology. Thank you for this consultation. Dr. Orestes Leon I agree with the dictator's note, documented as a scribe by Lois Harris.
== END 2021-08-12 09:44 | disposition home or self-care (01) ==
LOC: EC 21:22 → 6NMEDSUR 23:47 → 3NCARDOBS 08-11 06:10
PROVIDERS: ADMIT Family Medicine; ATTEND Family Medicine
DX: K91.840 Postprocedural hemorrhage of a digestive system organ or structure following a digestive system procedure (principal); K92.1 Melena; E11.22 Type 2 diabetes mellitus with diabetic chronic kidney disease; I12.9 Hypertensive chronic kidney disease with stage 1 through stage 4 chronic kidney disease, or unspecified chronic kidney disease; N18.2 Chronic kidney disease, stage 2 (mild); K57.30 Diverticulosis of large intestine without perforation or abscess without bleeding; E78.5 Hyperlipidemia, unspecified; G25.81 Restless legs syndrome; K21.9 Gastro-esophageal reflux disease without esophagitis; Z98.890 Other specified postprocedural states; Z86.010 Personal history of colon polyps; Z20.822 Contact with and (suspected) exposure to COVID-19; Z85.51 Personal history of malignant neoplasm of bladder; Z92.21 Personal history of antineoplastic chemotherapy; Z79.82 Long term (current) use of aspirin; Z79.4 Long term (current) use of insulin; Z79.899 Other long term (current) drug therapy; Z79.84 Long term (current) use of oral hypoglycemic drugs; Z80.0 Family history of malignant neoplasm of digestive organs; Z80.52 Family history of malignant neoplasm of bladder; Z82.49 Family history of ischemic heart disease and other diseases of the circulatory system
CPT/HCPCS: 96360; 99285; 36415; 86900; 86901; 80053; 85025 ×2; 85027 ×2; 85610; 85730; 86850; 87635; 74019; 45382; 44404; G0378 ×3; J2001; J0171; J2370; J2704

== ENCOUNTER → 2022-01-16 | Outpatient (CLI) | payer MEDICARE ==
[2022-01-16 10:37] LABS: Basophils # (A) 0.05 X 10*3/uL (0.00-0.10); Basophils % (A) 0.7 %; Eosinophils # (A) 0.13 X 10*3/uL (0.04-0.35); Eosinophils % (A) 1.9 %; HCT 46.3 % (39.6-50.0); Immature Grans, Automated 0.3 %; Lymphocytes # (A) 2.17 X 10*3/uL (0.90-5.00); MCH 27.3 pg (27.0-32.0); MCHC 32.4 g/dL (32.0-37.0); MCV 84.2 fL (80.0-97.0); Mean Platelet Volume 11.5 fL (9.5-12.2); Monocytes # (A) 0.55 X 10*3/uL (0.20-1.00); Monocytes % (A) 8.1 %; NRBC Per 100 WBC 0 /100 WBCS (0.0-0.0); Neutrophils # (A) 3.87 X 10*3/uL (1.80-7.70); Platelet Count 191 X 10*3/uL (140-440); RDW 15.1 % (11.5-14.5); WBC 6.79 X 10*3/uL (4.50-10.00)
[2022-01-16 11:04] LABS: ALT 14 U/L (10-49); AST 20 U/L (14-35); African American GFR (CKD) 81.2 (60.0-200.0); Albumin 4.5 g/dL (3.8-4.9); Albumin/Globulin Ratio 1.67 (1.60-3.17); Alkaline Phosphatase 68 U/L (41-126); BUN/Creat Ratio 15.64 Ratio (12.00-20.00); Blood Urea Nitrogen 17.2 mg/dL (9.0-27.0); Calcium 9.9 mg/dL (8.7-10.3); Carbon Dioxide 24.3 mmol/L (20.0-27.5); Chloride 103 mmol/L (96-109); Chol/HDL Ratio 3.37 Ratio; Globulin 2.7 g/dL (1.6-3.3); Glucose 149 mg/dL (70-110); LDL Cholesterol,Calculated 61.2 mg/dL (0.0-131.0); Non-African American GFR(CKD) 70.1 (60.0-200.0); Potassium 4.5 mmol/L (3.5-5.5); Sodium 138 mmol/L (135-145); Total Protein 7.2 g/dL (6.2-8.2)
== END | disposition home or self-care (01) ==
LOC: LABWHC1 06:56
PROVIDERS: ATTEND Family Medicine
DX: I12.9 Hypertensive chronic kidney disease with stage 1 through stage 4 chronic kidney disease, or unspecified chronic kidney disease (principal); E11.22 Type 2 diabetes mellitus with diabetic chronic kidney disease; E11.65 Type 2 diabetes mellitus with hyperglycemia; N18.2 Chronic kidney disease, stage 2 (mild); E78.2 Mixed hyperlipidemia; E53.8 Deficiency of other specified B group vitamins; E55.9 Vitamin D deficiency, unspecified
CPT/HCPCS: 36415; 80053; 80061; 82043; 82306; 82570; 82607; 83036; 84443; 85025

== ENCOUNTER → 2022-04-24 | Outpatient (CLI) | payer MEDICARE ==
[2022-04-24 10:44] LABS: Basophils # (A) 0.07 X 10*3/uL (0.00-0.10); Basophils % (A) 0.9 %; Eosinophils # (A) 0.17 X 10*3/uL (0.04-0.35); Eosinophils % (A) 2.3 %; HCT 45.3 % (39.6-50.0); HGB 15.3 g/dL (13.0-17.0); Immature Grans, Automated 0.7 %; Lymphocytes # (A) 2.74 X 10*3/uL (0.90-5.00); Lymphocytes % (A) 36.5 %; MCH 29.5 pg (27.0-32.0); MCHC 33.8 g/dL (32.0-37.0); MCV 87.3 fL (80.0-97.0); Mean Platelet Volume 11.7 fL (9.5-12.2); Monocytes # (A) 0.56 X 10*3/uL (0.20-1.00); Monocytes % (A) 7.5 %; NRBC Per 100 WBC 0 /100 WBCS (0.0-0.0); Neutrophils # (A) 3.91 X 10*3/uL (1.80-7.70); Neutrophils % (A) 52.1 %; Platelet Count 195 X 10*3/uL (140-440); RBC 5.19 X 10*6/uL (4.40-5.60); RDW 13.1 % (11.5-14.5)
[2022-04-24 11:28] LABS: ALT 21 U/L (10-49); AST 25 U/L (14-35); African American GFR (CKD) 76.2 (60.0-200.0); Albumin 4.7 g/dL (3.8-4.9); Albumin/Globulin Ratio 1.82 (1.60-3.17); Alkaline Phosphatase 71 U/L (41-126); BUN/Creat Ratio 13.97 Ratio (12.00-20.00); Blood Urea Nitrogen 16.2 mg/dL (9.0-27.0); Calcium 10.1 mg/dL (8.7-10.3); Carbon Dioxide 24.4 mmol/L (20.0-27.5); Chloride 102 mmol/L (96-109); Chol/HDL Ratio 3.31 Ratio; Globulin 2.6 g/dL (1.6-3.3); Glucose 130 mg/dL (70-110); Iron 59 ug/dL (65-175); LDL Cholesterol,Calculated 47.3 mg/dL (0.0-131.0); Non-African American GFR(CKD) 65.7 (60.0-200.0); Sodium 140 mmol/L (135-145); Total Protein 7.2 g/dL (6.2-8.2)
== END | disposition home or self-care (01) ==
LOC: LABWHC1 07:24
PROVIDERS: ATTEND Family Medicine
DX: E11.22 Type 2 diabetes mellitus with diabetic chronic kidney disease (principal); N18.2 Chronic kidney disease, stage 2 (mild); E78.5 Hyperlipidemia, unspecified
CPT/HCPCS: 36415; 80053; 80061; 82043; 82570; 82607; 83036; 83540; 84439; 84443; 85025

== ENCOUNTER → 2022-08-28 | Outpatient (CLI) | payer MEDICARE ==
[2022-08-28 11:16] LABS: Microalbumin Creatinine Ratio <30 mg/g Creat (0-30); Urine Creatinine 92.2 mg/dL (39.0-259.0)
[2022-08-28 15:11] LABS: Basophils # (A) 0.08 X 10*3/uL (0.00-0.10); Basophils % (A) 1.1 %; Eosinophils # (A) 0.15 X 10*3/uL (0.04-0.35); Eosinophils % (A) 2.1 %; HCT 48.3 % (39.6-50.0); HGB 15.5 g/dL (13.0-17.0); Immature Grans, Automated 0.6 %; Lymphocytes # (A) 2.58 X 10*3/uL (0.90-5.00); Lymphocytes % (A) 35.9 %; MCH 28.4 pg (27.0-32.0); MCHC 32.1 g/dL (32.0-37.0); MCV 88.5 fL (80.0-97.0); Mean Platelet Volume 11.5 fL (9.5-12.2); Monocytes # (A) 0.67 X 10*3/uL (0.20-1.00); Monocytes % (A) 9.3 %; NRBC Per 100 WBC 0 /100 WBCS (0.0-0.0); Neutrophils # (A) 3.66 X 10*3/uL (1.80-7.70); Platelet Count 201 X 10*3/uL (140-440); RBC 5.46 X 10*6/uL (4.40-5.60); RDW 13.4 % (11.5-14.5); WBC 7.18 X 10*3/uL (4.50-10.00)
[2022-08-28 16:16] LABS: ALT 25 U/L (10-49); AST 25 U/L (14-35); African American GFR (CKD) 81.2 (60.0-200.0); Albumin 4.8 g/dL (3.8-4.9); Albumin/Globulin Ratio 1.86 (1.60-3.17); Alkaline Phosphatase 68 U/L (41-126); BUN/Creat Ratio 13.73 Ratio (12.00-20.00); Blood Urea Nitrogen 15.1 mg/dL (9.0-27.0); Carbon Dioxide 25.6 mmol/L (20.0-27.5); Chloride 101 mmol/L (96-109); Chol/HDL Ratio 3.83 Ratio; Globulin 2.6 g/dL (1.6-3.3); Glucose 138 mg/dL (70-110); LDL Cholesterol,Calculated 57.5 mg/dL (0.0-131.0); Non-African American GFR(CKD) 70.1 (60.0-200.0); Potassium 4.4 mmol/L (3.5-5.5); Sodium 139 mmol/L (135-145); Total Protein 7.4 g/dL (6.2-8.2)
== END | disposition home or self-care (01) ==
LOC: LABWHC1 07:43
PROVIDERS: ATTEND Family Medicine
DX: E11.22 Type 2 diabetes mellitus with diabetic chronic kidney disease (principal); E11.65 Type 2 diabetes mellitus with hyperglycemia; E78.5 Hyperlipidemia, unspecified; N40.0 Benign prostatic hyperplasia without lower urinary tract symptoms; N18.2 Chronic kidney disease, stage 2 (mild); E53.8 Deficiency of other specified B group vitamins; E55.9 Vitamin D deficiency, unspecified
CPT/HCPCS: 36415; 80053; 80061; 82043; 82306; 82570; 82607; 83036; 84153; 84443; 85025

== ENCOUNTER 2024-11-05 07:15 | Day surgery (SDC) | payer MEDICARE ==
[2024-11-04 10:20] VITALS: BMI 29.9
[~2024-11-05 07:15] MED LIST changes: -LIDOCAINE 1% (10MG/ML) FOR IV START INTRADERMA PRN
[2024-11-05 07:38] VITALS: TEMP 97.5
[2024-11-05] MEDS: IV FLUID CONTINUATION 1,000 ML IV ONE (07:50)
[2024-11-05 07:55] LABS: Glucose,Whole Blood 132 mg/dL (70-110)
[2024-11-05] MEDS ORDERED: PROPOFOL 10 MG/ML 20 ML VIAL IV ONE (08:05)
[2024-11-05] MEDS ORDERED: PHENYLEPHRINE 10 MG/ML VIAL ONE (08:05)
--- NOTE | 2024-11-05 08:30 | P.PCN ---
Date of Procedure: 11/05/24 Procedure(s) Performed: BRIEF HISTORY: Patient is a 68-year-old pleasant white male scheduled for an elective colonoscopy as a part of screening for history of colon polyps. His last colonoscopy was 3 years ago and was noted to have an adenoma. PROCEDURE PERFORMED: Colonoscopy. PREOPERATIVE DIAGNOSIS: Screening for history of colon polyp. IV sedation per Anesthesia. PROCEDURE: After informed consent was obtained, the patient, was brought into the endoscopy unit. IV sedation was administered by Anesthesia under continuous monitoring. Digital rectal examination was normal. Initially the Olympus CF-160 flexible video colonoscope was then inserted in the rectum, gradually advanced into the cecum without any difficulty. Careful examination was performed as the scope was gradually being withdrawn. Ileocecal valve and the appendiceal orifice were visualized and appeared normal. Prep was excellent. Mucosa of the cecum, ascending colon, transverse colon, descending colon, sigmoid colon, and rectum appeared normal. Scattered sigmoid diverticulosis retroflexion was performed in the rectum and no lesions were seen. The patient tolerated the procedure well. IMPRESSION: Normal-appearing colon from rectum to cecum with no evidence of colorectal neoplasia Scattered sigmoid diverticulosis. RECOMMENDATIONS: Findings of this examination were discussed with the patient as well as his family. He was advised to have repeat screening colonoscopy in 10 years..
[2024-11-05 08:50] VITALS: BP 96/57; PULSE 68; RESP 16
== END 2024-11-05 09:15 | disposition home or self-care (01) ==
LOC: ORWHC2ENDO 07:15
PROVIDERS: ATTEND Internal Medicine Gastroenterology
DX: Z12.11 Encounter for screening for malignant neoplasm of colon (principal); Z86.0100 Personal history of colon polyps, unspecified; K57.30 Diverticulosis of large intestine without perforation or abscess without bleeding
CPT/HCPCS: J2704; J2371; G0121